=== PATIENT | male | born 1970 ===

== ENCOUNTER 2020-12-29 16:23 | Emergency (ER) | payer OTHER ==
[~2020-12-29] VITALS: Ht 170.2 cm; Wt 63.5 kg
[2020-12-29] MEDS ORDERED: HYDROCODON-ACE1 EA10 PO (19:24)
[2020-12-29] MEDS ORDERED: DOXYCYCLINE HY100 MG PO (19:24)
== END 2020-12-29 19:40 | disposition home or self-care (01) ==
LOC: ED 16:23
DX: S60.450A Superficial foreign body of right index finger, initial encounter (principal); W45.8XXA Other foreign body or object entering through skin, initial encounter; L02.511 Cutaneous abscess of right hand
CPT/HCPCS: 10060; 99283-25